=== PATIENT | male | born 2000 | race Caucasian/White ===

== ENCOUNTER 2022-02-14 01:14 | Emergency (ER) | payer OTHER ==
[~2022-02-14] VITALS: Ht 182.9 cm; Wt 88.0 kg
[2022-02-14] MEDS ORDERED: DEXAMETHASONE 10 MG/ML VIAL IM ONE (03:00)
[2022-02-14] MEDS ORDERED: EPIN0.3P3 IM (03:59)
[2022-02-14 04:51] VITALS: BP 129/76
== END 2022-02-14 04:48 | disposition home or self-care (01) ==
LOC: ER 01:14
DX: T78.40XA Allergy, unspecified, initial encounter (principal); X58.XXXA Exposure to other specified factors, initial encounter; Z91.018 Allergy to other foods
CPT/HCPCS: 96372; 99283; J1100